=== PATIENT | female | born 1975 | race Caucasian/White ===

== ENCOUNTER 2017-05-04 12:45 | Emergency (ER) | payer OTHER ==
[2017-05-04 13:00] VITALS: RESP 18
--- NOTE | 2017-05-04 13:29 | CPEKG ---
Heart Rate: 75 RR Interval: 800 P-R Interval: 168 QRSD Interval: 86 QT Interval: 424 QTC Interval: 474 P Bearden: 73 QRS Bearden: 52 T Wave Bearden: 18 EKG Severity - BORDERLINE ECG - EKG Impression: SINUS RHYTHM EKG Impression: BORDERLINE T WAVE ABNORMALITIES Electronically Signed By: Ed Howard 04-May-2017 13:35:55
--- NOTE | 2017-05-04 13:37 | EDPHY ---
General Narrative: CHIEF COMPLAINT: "feeling faint" HISTORY OF PRESENT ILLNESS: Patient presents with complaints of feeling like she was going to pass out. This happened about 30-45 minutes ago. It was sudden onset while at lunch. Lasted 15 minutes. She describes it as feeling lightheaded, feeling her heart race. She felt as though she was going to pass out but she did not. She had no chest pain of any kind during this, before and/or after. She has no chest pain right now. She had no shortness of breath. She has no previous incidence of this. She has no known cardiac conduction delay or cardiac diagnosis. She has no predictable modifying factors for this. No other associated complaints. REVIEW OF SYSTEMS: Ten systems reviewed and are negative unless otherwise noted in the HPI PCP: Dr. Feng in [place] SPECIALISTS: None PAST MEDICAL HISTORY: None PAST SURGICAL HISTORY: ACL repair, cyst removal SOCIAL HISTORY: Nonsmoker. Occasional alcohol. No drug use. Works as an mechanical engineering specialist FAMILY HISTORY: Noncontributory EXAMINATION General Appearance: Alert, no distress Head: normocephalic, atraumatic Eyes: Pupils equal and round, no conjunctival pallor or injection ENT, Mouth: Mucous membranes moist Neck: Normal inspection, supple, non-tender Respiratory: Lungs are clear to auscultation. No wheezing, rhonchi or crackles Cardiovascular: Regular rate and rhythm. No murmur Neurological: A&O, nonfocal, normal steady gait. Strength is symmetric in the extremities. Skin: Warm and dry, no rash. No petechiae or purpura Extremities: Nontender, no pedal edema Psychiatric: Mood and affect normal DIFFERENTIAL DIAGNOSES: Including but not limited to paroxysmal SVT, paroxysmal AF flutter, paroxysmal AFib, dehydration MDM: 1:20 p.m. Near syncopal episode with palpitations that resolved prior to arrival. No chest pain of any kind. No previous incidence of this. Her vitals are stable and she is in no acute distress. EKG ordered. Laboratory studies ordered. 1:35 p.m. EKG is normal sinus rhythm. No ischemia. No conduction delay. Laboratory studies pending 2:00 p.m. Patient re-evaluated. She still asymptomatic. No lightheadedness. No chest pain. No palpitations. Laboratory studies are pending Case discussed with Dr. Howard, and at this time he will assume care the patient. If her laboratory studies are negative, plan for disposition home with outpatient follow-up with primary care physician and privacy specialist. Also recommend that she come back to the emergency department for any return of symptoms, chest pain or syncope. EKG interpretation: Dr. Howard Normal sinus rhythm. No acute ischemia - History Smoking Status: Never smoked - Objective Vital Signs: Initial Vital Signs Temperature (C) 97.9 F 05/04/17 12:56 Heart Rate 90 05/04/17 12:56 Respiratory Rate 18 05/04/17 12:56 Blood Pressure 132/96 H 05/04/17 12:56 O2 Sat (%) 96 05/04/17 12:56 O2 Delivery Mode Room Air Allergies/Adverse Reactions: No Known Allergies Allergy (Unverified 05/04/17 12:55) Home Medications: Medication Instructions Recorded NK [No Known Home Meds] 05/04/17 Laboratory Results: Laboratory Results 05/04/17 13:35 05/04/17 13:35 Departure - Departure Disposition: Home, Routine, Self-Care Clinical Impression: Near syncope, Palpitations Condition: Good Instructions: Supraventricular Tachycardia (ED), Palpitations (ED), Near Syncope (ED) Additional Instructions: 1. Contact her primary care physician for outpatient follow-up. 2. Contact the on-call privacy specialist for outpatient follow-up 3. Precautions as discussed Referrals: SUN FENG [Other] - As per Instructions Zia Brooks MD [Medical Doctor] - As per Instructions
[2017-05-04 13:43] LABS: % IMMATURE GRANULYOCYTES 0.2 % (0.0-1.1); ABSOLUTE IMMATURE GRANULOCYTES 0.01 10^3/uL (0.00-0.10); ADD DIFF? NO; ADD MORPH? NO; ADD SCAN? NO; ATYPICAL LYMPHOCYTE FLAG 0 (0-99); FRAGMENT RBC FLAG 0 (0-99); HEMATOCRIT 40.2 % (38.0-47.0); HEMOGLOBIN 14.1 g/dL (12.6-16.3); LEFT SHIFT FLG 0 (0-99); LIPEMIA HEMOLYSIS FLAG 90 (0-99); MEAN CELL HEMOGLOBIN 32.5 pg (27.9-34.1); MEAN CELL HEMOGLOBIN CONCENTR. 35.1 g/dL (32.4-36.7); MEAN CELL VOLUME 92.6 fL (81.5-99.8); MEAN PLATELET VOLUME 10.3 fL (8.7-11.7); PLATELET CLUMPS FLAG 10 (0-99); PLATELET COUNT 195 10^3/uL (150-400); RED BLOOD CELL COUNT 4.34 10^6/uL (4.18-5.33); RED CELL DISTRIBUTION WIDTH 12.2 % (11.5-15.2)
[2017-05-04 14:01] LABS: ANION GAP 14 mEq/L (8-16); CALCIUM 9.3 mg/dL (8.5-10.4); CARBON DIOXIDE 23 mEq/l (22-31); CHLORIDE 103 mEq/L (97-110); CREATININE 0.7 mg/dL (0.6-1.0); GLOMERULAR FILTRATION RATE > 60; GLUCOSE 107 mg/dL (70-100); POTASSIUM 3.5 mEq/L (3.5-5.2); SODIUM 140 mEq/L (134-144)
[2017-05-04 14:20] VITALS: BP 113/65; PULSE 72; TEMP 98.4; O2SAT 98
== END 2017-05-04 14:18 | disposition home or self-care (01) ==
DX: R55 Syncope and collapse (principal); R00.2 Palpitations